=== PATIENT | female | born 1940 | race Caucasian/White ===

== ENCOUNTER 2017-07-24 19:12 | Emergency (ER) | payer MEDICARE, OTHER ==
[~2017-07-24] VITALS: Ht 152.4 cm; Wt 92.4 kg
[~2017-07-24 19:12] MED LIST: ACYCLOVIR800 MG PO; AMITRIPTYLIN75 MG PO; ASA LOW DOSE81 MG OR; ASPIRIN 8181 MG PO; AUGMENTIN875TAB PO; CEPHALEXIN500 MG PO; CIPROFLOXACN500 MG PO; FLONASE NASAL50 MCG; HYDROCORT2.5 % PO; LOSARTAN POT100 MG PO; METOPROL TAR25 M1 PO; MUCINEX600 MG PO; NITROGLYCER0.4 MG SL; NON-ASPIRIN325 MG OR; OMEPRAZOLE40 MG PO; ONDANSETRON4 MG PO; OXYCODONE/ACETA1 TA1 OR; PRILOSEC40 MG PO; TESSALON PER100 MG PO; VENTOLIN HFA; VICODIN OR; VICODIN1 TA1 PO; VICODIN1 TAB PO; XANAX0.25 MG OR; XANAX0.25 MG PO; XARELTO10 MG OR
[2017-07-24] MEDS ORDERED: MEDDOSEPAK PO (19:36)
[2017-07-24 20:20] VITALS: BP 145/68
== END 2017-07-24 20:20 | disposition home or self-care (01) ==
LOC: ED 19:12
DX: L50.9 Urticaria, unspecified (principal); I10 Essential (primary) hypertension; F41.9 Anxiety disorder, unspecified; F32.9 Major depressive disorder, single episode, unspecified; M54.32 Sciatica, left side; J45.909 Unspecified asthma, uncomplicated

== ENCOUNTER 2020-08-26 10:40 | Emergency (ER) | payer MEDICARE, OTHER ==
[~2020-08-26] VITALS: Ht 154.9 cm; Wt 100.0 kg
[~2020-08-26 10:40] MED LIST changes: +MEDDOSEPAK PO
[2020-08-26 11:10] LABS: HEMATOCRIT 44.2 % (37.0-47.0); HEMOGLOBIN 13.4 g/dl (12.0-16.0); IMMATURE GRANULOCYTES 0.3 % (0.0-5.0); MEAN CELL VOLUME 101.6 fL CALC (80.0-100.0); MEAN CORPUSCULAR HGB 30.8 pG CALC (26.0-32.0); MEAN CORPUSCULAR HGB CONC 30.3 g/dL CAL (32.0-36.0); NEUT# 4.26 thou/uL (2.00-7.15); RED BLOOD COUNT 4.35 mill/uL (4.20-5.60); RED CELL DISTRI WIDTH 12.8 % (11.5-15.5)
[2020-08-26 11:21] LABS: ALKALINE PHOSPHATASE 58 u/l (38-126); ANION GAP 10 (6-22 (CALC)); BILIRUBIN, TOTAL 0.6 mg/dL (0.0-1.4); BUN 21 mg/dL (8-23); BUN/CREATININE RATIO 25 (12-20 (CALC)); CARBON DIOXIDE 26 mmol/l (22-30); CHLORIDE 103 mmol/l (95-108); CREATININE 0.9 mg/dL (0.5-1.0); GFR > 60 ML/MIN (>=60 (CALC)); GFR FOR AFR.AMER. > 60 ML/MIN (>=60 (CALC)); POTASSIUM 4.2 mmol/l (3.5-5.1); SGOT/AST 23 u/l (9-36); SODIUM 134 mmol/l (137-146)
[2020-08-26 11:36] LABS: ACT PARTIAL THROMBO TIME 24.5 SECONDS (20.0-32.5); PROTHROMBIN TIME 10.2 SECONDS (9.0-12.5)
[2020-08-26 13:57] LABS: URINE BILIRUBIN - DIPSTICK NEGATIVE (NEGATIVE); URINE BLOOD DIPSTICK MODERATE (NEGATIVE); URINE COLOR YELLOW; URINE GLUCOSE - DIPSTICK NEGATIVE (NEGATIVE); URINE KETONE NEGATIVE (NEGATIVE); URINE LEUK ESTERASE NEGATIVE (NEGATIVE); URINE NITRITE - DIPSTICK NEGATIVE (Negative); URINE PH 7.5 (4.5-8.0); URINE PROTEIN - DIPSTICK NEGATIVE (NEG-TRACE); URINE UROBILINOGEN - DIPSTICK 0.2 E.U./dL (0.2)
[2020-08-26 14:04] VITALS: BP 162/69
== END 2020-08-26 14:00 | disposition short-term general hospital (02) ==
LOC: ED 10:40
PROVIDERS: Student in an Organized Health Care Education/Training Program
DX: I26.99 Other pulmonary embolism without acute cor pulmonale (principal); J96.91 Respiratory failure, unspecified with hypoxia; I10 Essential (primary) hypertension; J45.909 Unspecified asthma, uncomplicated; Z20.822 Contact with and (suspected) exposure to COVID-19
CPT/HCPCS: J1644; Q9967

== ENCOUNTER 2024-02-23 12:28 | Emergency (ER) | payer MEDICARE, OTHER ==
[2024-02-23] VITALS (9 sets, daily range): BP systolic 143–171; BP diastolic 56–94
[~2024-02-23] VITALS: Ht 154.9 cm; Wt 86.0 kg
[2024-02-23 13:37] LABS: BASO% 0.6 % (0-3); EOS% 0.8 % (0-8); HEMATOCRIT 37.8 % (37.0-47.0); HEMOGLOBIN 12.3 g/dl (12.0-16.0); IMMATURE GRANULOCYTES 0.2 % (0.0-5.0); LYMPH% 19.4 % (15-41); MEAN CELL VOLUME 93.6 fL CALC (80.0-100.0); MEAN CORPUSCULAR HGB 30.4 pG CALC (26.0-32.0); MEAN CORPUSCULAR HGB CONC 32.5 g/dL CAL (32.0-36.0); MONO% 6.1 % (2-13); NEUT# 3.6 thou/uL (2.00-7.15); NEUT% 72.9 % (42-76); RED BLOOD COUNT 4.04 mill/uL (4.20-5.60); RED CELL DISTRI WIDTH 12.7 % (11.5-15.5)
[2024-02-23 13:50] LABS: BILIRUBIN, TOTAL 0.5 mg/dL (0.02-1.3); CREATININE 0.9 mg/dL (0.5-1.0); POTASSIUM 4.2 mmol/l (3.5-5.1); TOTAL PROTEIN 6.7 g/dL (6.3-8.2)
[2024-02-23 13:56] LABS: INTERNATIONAL NORMALIZED RATIO 1.2 RATIO (0.7-1.3)
[2024-02-23 13:59] LABS: PROTHROMBIN TIME 11.7 SECONDS (9.0-12.5)
[2024-02-23] MEDS ORDERED: KETOROLAC TROMETHAMINE 15 MG/ML SDV IM ONE (14:55)
[2024-02-23] MEDS ORDERED: METHOCARBAMOL 500 MG/TAB PO ONE (15:00)
[2024-02-23] MEDS ORDERED: DEXAMETHASONE SOD. PHOSPHATE 10 MG/ML VIAL IM ONE (15:00)
[2024-02-23] MEDS ORDERED: NAPROXEN500 MG PO (16:28)
[2024-02-23] MEDS ORDERED: PREDNISONE10 MG PO (16:28)
[2024-02-23] MEDS ORDERED: METHOCARBAMOL500 MG PO (16:28)
== END 2024-02-23 16:45 | disposition home or self-care (01) ==
LOC: ED 12:28
PROVIDERS: Nurse Practitioner
DX: S39.012A Strain of muscle, fascia and tendon of lower back, initial encounter (principal); M47.816 Spondylosis without myelopathy or radiculopathy, lumbar region; I10 Essential (primary) hypertension; J45.909 Unspecified asthma, uncomplicated; W01.0XXA Fall on same level from slipping, tripping and stumbling without subsequent striking against object, initial encounter

== ENCOUNTER 2024-09-10 13:51 | Observation (INO) | payer MEDICARE, OTHER ==
[2024-09-10] VITALS (15 sets, daily range): BP systolic 94–155; BP diastolic 54–97
[~2024-09-10] VITALS: Ht 154.9 cm; Wt 86.0 kg
[~2024-09-10 13:51] MED LIST changes: +ASPIRIN 81 LOW81 MG PO; -ASPIRIN 8181 MG PO; +METHOCARBAMOL500 MG PO; +NAPROXEN500 MG PO; +PREDNISONE10 MG PO
[2024-09-10] MEDS ORDERED: LOSARTAN POTASS50 MG PO (14:31)
[2024-09-10] MEDS ORDERED: XARELTO10 MG PO (14:31)
[2024-09-10] MEDS ORDERED: ATENOLOL50 MG PO (14:31)
[2024-09-10] MEDS ORDERED: PROTONIX40 M2 PO (14:32)
[2024-09-10] MEDS ORDERED: AMITRIPTYLINE H75 M1 PO (14:33)
[2024-09-10 14:42] LABS: BASO% 0.3 % (0-3); EOS% 0.1 % (0-8); HEMATOCRIT 44.9 % (37.0-47.0); HEMOGLOBIN 14.2 g/dl (12.0-16.0); IMMATURE GRANULOCYTES 0.3 % (0.0-5.0); LYMPH% 16.6 % (15-41); MEAN CELL VOLUME 96.8 fL CALC (80.0-100.0); MEAN CORPUSCULAR HGB 30.6 pG CALC (26.0-32.0); MEAN CORPUSCULAR HGB CONC 31.6 g/dL CAL (32.0-36.0); MONO% 5.7 % (2-13); NEUT# 6.1 thou/uL (2.00-7.15); RED BLOOD COUNT 4.64 mill/uL (4.20-5.60); RED CELL DISTRI WIDTH 13.7 % (11.5-15.5)
[2024-09-10 14:52] LABS: ALBUMIN 4.5 g/dL (3.2-5.0); ALKALINE PHOSPHATASE 83 u/l (38-126); ANION GAP 13 (6-22 (CALC)); BUN 16 mg/dL (8-23); BUN/CREATININE RATIO 17 (12-20 (CALC)); CARBON DIOXIDE 28 mmol/l (22-30); CHLORIDE 102 mmol/l (95-108); ESTIMATED GFR 56 ML/MIN (>=90 (CALC)); LIPASE 42 u/l (23-300); SGOT/AST 35 u/l (9-36); SODIUM 139 mmol/l (137-146)
[2024-09-10 14:56] LABS: BILIRUBIN, TOTAL 0.8 mg/dL (0.02-1.3); TOTAL PROTEIN 8.2 g/dL (6.3-8.2)
[2024-09-10] MEDS ORDERED: ASPIRIN 81 MG/TAB PO ONE (15:50)
[2024-09-10] MEDS ORDERED: NITROGLYCERIN 0.4 MG/TAB SL PRN (17:35)
[2024-09-10] MEDS ORDERED: ACETAMINOPHEN 325 MG/TAB PO PRN (17:35)
[2024-09-10] MEDS ORDERED: Polyethylene Glycol 3350 17 GM/PKT PO PRN (17:35)
[2024-09-10] MEDS ORDERED: oxyCODONE HCL 5 MG/TAB PO PRN (17:35)
[2024-09-10] MEDS ORDERED: ONDANSETRON 4 MG/TAB ODT SL PRN (17:35)
[2024-09-10 18:23] LABS: CHOLESTEROL HDL RATIO 2.1 (<4.4 (CALC))
[2024-09-10 18:41] LABS: URINE BILIRUBIN - DIPSTICK Negative (NEGATIVE); URINE BLOOD DIPSTICK Small (NEGATIVE); URINE GLUCOSE - DIPSTICK Negative (NEGATIVE); URINE KETONE Trace mg/dL (NEGATIVE); URINE LEUK ESTERASE Negative (NEGATIVE); URINE NITRITE - DIPSTICK Negative (Negative); URINE PH 5.5 (4.5-8.0); URINE PROTEIN - DIPSTICK Negative (NEG-TRACE); URINE UROBILINOGEN - DIPSTICK 0.2 E.U./dL (0.2)
[2024-09-10 18:42] LABS: URINE COLOR Yellow
[2024-09-10 18:48] LABS: URINE SQUAMOUS EPITHELIAL CELL MANY EPI/hpf (0-FEW)
[2024-09-10 18:49] LABS: URINE BACTERIA FEW hpf
[2024-09-10 18:54] LABS: TSH, 3RD GENERATION 0.63 uIU/mL (0.47 - 4.68)
[2024-09-10] MEDS ORDERED: RIVAROXABAN 20 MG TAB PO SCH (21:00)
[2024-09-10] MEDS ORDERED: ASPIRIN 81 MG/TAB PO SCH (21:00)
[2024-09-10] MEDS ORDERED: ATORVASTATIN CALCIUM 40 MG/TAB PO SCH (21:00)
[2024-09-11 04:24] VITALS: BP 125/48
[2024-09-11 05:37] LABS: BASO% 0.7 % (0-3); EOS% 0.7 % (0-8); IMMATURE GRANULOCYTES 0.2 % (0.0-5.0); LYMPH% 23.2 % (15-41); MEAN CELL VOLUME 96.9 fL CALC (80.0-100.0); MEAN CORPUSCULAR HGB 31.6 pG CALC (26.0-32.0); MEAN CORPUSCULAR HGB CONC 32.7 g/dL CAL (32.0-36.0); MONO% 8.1 % (2-13); NEUT# 3.9 thou/uL (2.00-7.15); NEUT% 67.1 % (42-76); RED BLOOD COUNT 3.54 mill/uL (4.20-5.60); RED CELL DISTRI WIDTH 13.7 % (11.5-15.5)
[2024-09-11 05:42] LABS: BILIRUBIN, TOTAL 0.5 mg/dL (0.02-1.3); CREATININE 0.8 mg/dL (0.5-1.0); MAGNESIUM 1.8 mg/dL (1.6-2.3); POTASSIUM 3.8 mmol/l (3.5-5.1)
[2024-09-11 05:46] LABS: HEMATOCRIT 34.3 % (37.0-47.0); HEMOGLOBIN 11.2 g/dl (12.0-16.0)
[2024-09-11 05:52] LABS: ALBUMIN 3.3 g/dL (3.2-5.0); TOTAL PROTEIN 6.2 g/dL (6.3-8.2)
[2024-09-11 07:30] VITALS: BP 125/56
[2024-09-11 08:37] VITALS: BP 125/48
[2024-09-11] MEDS ORDERED: ATENOLOL 50 MG/TAB PO SCH (09:00)
[2024-09-11] MEDS ORDERED: PANTOPRAZOLE SODIUM Sesquihydr 40 MG/TAB PO SCH (09:00)
[2024-09-11] MEDS ORDERED: LOSARTAN Potassium 50 MG/TAB PO SCH (09:00)
[2024-09-11] MEDS ORDERED: ZPAK PO (10:04)
[2024-09-11] MEDS ORDERED: MEDDOSEPAK PO (10:04)
[2024-09-11] MEDS ORDERED: ROBITUSSIN AC10 ML PO (10:05)
[2024-09-12] MEDS ORDERED: ROBITUSSIN AC10 ML PO (09:08)
[2024-09-12] MEDS ORDERED: MEDDOSEPAK PO (09:08)
[2024-09-12] MEDS ORDERED: ZPAK PO (09:08)
== END 2024-09-11 11:14 | disposition home or self-care (01) ==
LOC: ED 13:51 → ED-I 17:20 → ED 17:34 → MS2 17:35
PROVIDERS: Family Medicine; ADMIT Internal Medicine; ATTEND Internal Medicine
DX: K21.9 Gastro-esophageal reflux disease without esophagitis (principal); J45.901 Unspecified asthma with (acute) exacerbation; I10 Essential (primary) hypertension; Z86.711 Personal history of pulmonary embolism; Z86.718 Personal history of other venous thrombosis and embolism; Z79.01 Long term (current) use of anticoagulants; R07.9 Chest pain, unspecified
CPT/HCPCS: G0378; Q9967